=== PATIENT | female | born 1960 | race African-American/Black ===

== ENCOUNTER 2020-09-11 19:36 | Inpatient (IN) | payer BC, SELFPAY ==
--- NOTE | ~2020-09-11 | CT_ITS ---
EXAMINATION: CT abdomen pelvis wo con DATE: 09/15/2020 13:44 INDICATION: Persistent pyelonephritis TECHNIQUE: Computed tomography (CT) of the abdomen and pelvis was performed without intravenous contr ast. Automated exposure control and iterative reconstruction technique were employed. The dose-length product was 703.00 mGy-cm. COMPARISON: 09/11/2020 FINDINGS: Lung bases are clear. Cardiomegaly with small pericardial effusion. Liver, gallbladder, spleen, pancr eas and bilateral adrenal glands are normal. Severe right renal atrophy with compensatory hypertrophy of the left kidney. Motion artifact associated with an unchanged approximately 2 mm calcific lesion at the periphery of the right kidney with no hydronephrosis. Again seen is asymmetric mild left perin ephric stranding. There is also persistent retroperitoneal lymphadenopathy is prominent in the left p erirectal region where the largest lymph node measures 2.2 x 1.1 cm. A few sigmoid diverticula withou t adjacent from 3 change to suggest diverticulitis. Small bowel and appendix are normal. Coarse calci fic lesions consistent with degenerated fibroids in the anteverted uterus. Bladder is normal. Mild th oracolumbar levoscoliosis with mild to moderate spondylosis. Sacral nerve root stimulator extending t hrough the left S3 neural foramen. Moderate bilateral sacral ileitis which could be either degenerati ve or inflammatory in etiology. IMPRESSION: 1. Persistent asymmetric left perinephric stranding without urolithiasis or hydronephrosis consistent with given history of pyelonephritis. 2. Cardiomegaly with small pericardial effusion. 3. Mild left periaortic lymphadenopathy which is likely reactive. 4. 2 mm nonobstructing stone at the periphery of the severely atrophic right kidney. 5. Likely chronic degenerated uterine fibroids. Reviewed, dictated and finalized at location A. IMPRESSION: 1. Persistent asymmetric left perinephric stranding without urolithiasis or hyd ronephrosis consistent with given history of pyelonephritis. 2. Cardiomegaly with small pericardial effusion. 3. Mild left periaortic lymphadenopathy which is likely reactive. 4. 2 mm nonobstructing stone at the periphery of the severely atrophic right ki dney. 5. Likely chronic degenerated uterine fibroids.
--- NOTE | ~2020-09-11 | US_ITS ---
EXAMINATION: US abdomen limited DATE: 09/12/2020 15:59 INDICATION: Right upper quadrant abdominal pain. Nausea and vomiting. TECHNIQUE: Multiple grayscale and Doppler ultrasound images of the abdomen were obtained. COMPARISON: CT abdomen and pelvis 09/11/2020 FINDINGS: The visualized portions of the head and body of the pancreas are normal. The liver is tamia l without focal lesion. No liver surface nodularity. There is normal flow in main portal vein. The ga llbladder is normal in size. No gallstones or gallbladder wall thickening. There was no sonographic M urphy sign. The common duct is normal and measures 4 mm. IMPRESSION: 1. Normal right upper quadrant ultrasound. Reviewed, dictated and finalized at location A.
--- NOTE | ~2020-09-11 | CT_ITS ---
EXAMINATION: CT abdomen pelvis wo con DATE: 09/11/2020 22:33 INDICATION: Vomiting TECHNIQUE: Computed tomography (CT) of the abdomen and pelvis was performed without intravenous contr ast. Automated exposure control and iterative reconstruction technique were employed. The dose-length product was 535.51 mGy-cm. COMPARISON: None FINDINGS: Minimal atelectasis in the left lower lung zone. Mild cardiomegaly. No pericardial or pleural effusio n. Suggestion of prior left mastectomy. Intermediate attenuation sludge and/or gallstones in the depe ndent aspect of the gallbladder. No evident gallbladder wall thickening or pericholecystic inflammato ry stranding to suggest acute cholecystitis. Liver, spleen, pancreas and bilateral adrenal glands are normal. 2 mm calcification potentially renal stone at the periphery of the severely atrophic right k idney. No evident left-sided urolithiasis or hydronephrosis. There is asymmetric mild left perinephri c stranding. Mild left para-aortic lymphadenopathy, the largest at the level of the left renal vein m easuring 12 mm maximal short axis diameter. Bladder is normal. Coarse calcifications in the anteverte d uterus consistent with degenerated uterine fibroids. There are few scattered colonic diverticula wi thout adjacent from 3 change to suggest diverticulitis. Small bowel and appendix are normal. No free intraperitoneal gas or fluid. Sacral nerve root stimulator lead extending through the left S3 neural foramen. Mild thoracolumbar spondylosis with moderate spondylosis. Nonspecific moderate bilateral sac roiliitis which could be either degenerative or inflammatory in etiology. IMPRESSION: 1. Asymmetric left perinephric stranding without evident left-sided urolithiasis or hydronephrosis wh ich raises suspicion for pyelonephritis. Correlate with urinalysis. 2. Sludge and/or gallstones within the otherwise normal gallbladder. No other findings to suggest acu te cholecystitis. 3. Mild cardiomegaly. 4. Mild left para-aortic lymphadenopathy which could be reactive related to suspected left pyelonephr itis. 5. 2 mm nonobstructing stone at the periphery of the severely atrophic right kidney. 6. Likely chronic degeneration uterine fibroids. Reviewed, dictated and finalized at location A. IMPRESSION: 1. Asymmetric left perinephric stranding without evident left-sided urolithiasi s or hydronephrosis which raises suspicion for pyelonephritis. Correlate with u rinalysis. 2. Sludge and/or gallstones within the otherwise normal gallbladder. No other f indings to suggest acute cholecystitis. 3. Mild cardiomegaly. 4. Mild left para-aortic lymphadenopathy which could be reactive related to du pected left pyelonephritis. 5. 2 mm nonobstructing stone at the periphery of the severely atrophic right ki dney. 6. Likely chronic degeneration uterine fibroids.
[2020-09-11 19:51] VITALS: BP 146/88; PULSE 105; RESP 16; TEMP 36.7; O2SAT 100
[2020-09-11 20:13] LABS: Basophils Percent Auto 0.5 % (0.2-1.2); Eosinophils Absolute Auto 0.1 K/mm3 (0-0.3); Eosinophils Percent Auto 1.2 % (0-4.4); Hematocrit 33.6 % (37.0-47.0); Hemoglobin 10.1 g/dL (12.0-15.0); Immature Granulocyte Absolute 0.02 K/mm3 (0.00-0.031); Immature Granulocyte Percent A 0.3 % (0-0.5); Lymphocytes Absolute Auto 1.67 K/mm3 (0.9-3.2); Lymphocytes Percent Auto 22.3 % (18.3-44.2); Mean Corpuscular HGB Conc 30.1 g/dl (32-36); Mean Corpuscular Hemoglobin 24.2 pg (26-34); Mean Corpuscular Volume 80.4 fl (80-100); Monocytes Absolute Auto 0.6 K/mm3 (0.1-0.6); Monocytes Percent Auto 8.4 % (2.6-8.5); Neutrophils Percent Auto 67.3 % (45.5-73.1); Platelet Count Result 357 k/mm3 (150-375); Red Blood Count 4.18 M/mm3 (4.2-5.4); Red Cell Distribution Width 17.1 % (11.5-14.5); White Blood Count 7.5 K/mm3 (4.5-10.0)
[2020-09-11 20:23] LABS: Alanine Aminotransferase 15 U/L (4-35); Albumin Level 4.5 g/dL (3.5-5.1); Alkaline Phosphatase 140 U/L (38-126); Anion Gap 14 mmol/L (8-16); Aspartate Amino Transferase 33 U/L (14-36); Bilirubin,Total 0.6 mg/dL (0.2-1.3); Blood Urea Nitrogen 41 mg/dL (7-17); Calcium 10.1 mg/dL (8.4-10.2); Carbon Dioxide 19 mmol/L (22-30); Chloride 112 mmol/L (98-107); Estimated CRCL calculation 23 ml/min; Estimated Glomerular Filt Rate 25; Glucose 143 mg/dL (65-105); Lipase 310 U/L (23-300); Potassium 4.2 mmol/L (3.4-5.0); Sodium 145 mmol/L (137-145)
--- NOTE | 2020-09-11 22:34 | ED.GENADULT ---
HPI - General Adult General Chief complaint: Abdominal Pain Stated complaint: possible gi bleed per pcp Time Seen by Provider: 09/11/20 21:54 Source: patient and RN notes reviewed Mode of arrival: ambulatory Limitations: no limitations History of Present Illness HPI narrative: This is a 60 year old female who presents for evaluation of nausea and vomiting starting today. Patient states she has been having multiple episodes of emesis today. She reports she has had multiple episodes of brown emesis. She denies abdominal pain, fever or chills. She has noticed strong smelling urine for 1 week. She was told to go to ER by PCP for possible upper GI bleeding. She denies melena. She denies taking anticoagulation and she denies history GI bleeding. She reports most of her doctors are located in [place] Related Data Home Medications Medication Instructions Recorded Confirmed amlodipine 5 mg PO DAILY 09/12/20 09/12/20 anastrozole 1 mg PO DAILY 09/12/20 09/12/20 atorvastatin 20 mg PO DAILY 09/12/20 09/12/20 hydrochlorothiazide 12.5 mg PO DAILY 09/12/20 09/12/20 hydrocodone-acetaminophen 1 tablet PO PRN PRN 09/12/20 09/12/20 insulin glargine [Lantus Solostar 43 unit SUBCUT HS 09/12/20 09/12/20 U-100 Insulin] insulin lispro [Humalog KwikPen 10 unit SUBCUT TID 09/12/20 09/12/20 Insulin] losartan 100 mg PO DAILY 09/12/20 09/12/20 pen needle, diabetic [BD 09/12/20 09/12/20 Ultra-Fine Short Pen Needle] pregabalin 100 mg PO TID 09/12/20 09/12/20 sertraline 100 mg PO DAILY 09/12/20 09/12/20 Allergies Allergy/AdvReac Type Severity Reaction Status Date / Time No Known Allergies Allergy Unverified 09/14/18 10:14 Review of Systems Review of Systems: All systems reviewed & are unremarkable except as noted in HPI and below Constitutional: Constitutional: Denies chills and Denies fever(s) Cardiovascular: Cardiovascular: Denies chest pain Respiratory: Respiratory: Denies cough and Denies dyspnea Gastrointestinal: Gastrointestinal: Reports nausea and Reports vomiting [facility] Past Medical History Medical History (Updated 09/12/20 @ 07:45 by Rosalind Salmeron MD) Bowel incontinence Breast cancer Chronic kidney disease Diabetes mellitus Dysarthria Surgical History Surgical History (Updated 09/11/20 @ 22:34 by Rosalind Salmeron MD) H/O mastectomy Family History Family History (Updated 09/12/20 @ 03:12 by Vielka Lee RN) Sibling Myocardial infarction Breast cancer Mother Myocardial infarction Breast cancer Sibling Myocardial infarction Breast cancer Schizophrenia Father Stomach cancer Social History Social History (Updated 09/11/20 @ 22:35 by Rosalind Salmeron MD) Smoking status: Never smoker Alcohol intake: never Substance use: never Spiritual care concerns: No Exam Const: General: no acute distress and alert Orientation/consciousness: patient oriented x3 Resp: Effort & Inspection: normal respiratory effort and no retractions Auscultation: clear to auscultation bilaterally Cardio: Rate: regular rate Rhythm: regular rhythm Heart sounds: no murmurs GI: GI Palp: Yes Soft to palpation, Yes Tenderness to palpation present (GI) (epigastric pain) and No Guarding due to palpation present (GI) Auscultation: normal bowel sounds Other: guaic negative : General: Yes no CVA tenderness Skin: General skin exam: normal color Rashes: no rashes Neuro: General: patient oriented x3, moves all extremities and CN's II-XI intact bilaterally Course Reevaluation(s) Reevaluation #1: PAtient states she still does not feel well. No vomiting. She is hypertensive but she states she has not taken her antihypertensive today. She takes losartan 100mg and amlodipine 5 mg Date: 09/12/20 Time: 01:13 Vital Signs Vital signs: Vital Signs Temperature 98.0 F 09/11/20 19:51 Pulse Rate 105 H 09/11/20 19:51 Respiratory Rate 16 09/11/20
[2020-09-11 23:08] LABS: Add Urine Microscopic? YES; Appearance Urine Cloudy (Clear); Bacteria Urine 3+ /hpf; Bilirubin Urine Negative (Negative); Blood Urine 1+ (Negative); Color Urine Yellow (Yellow); Glucose Urine UA Negative (Negative); Ketones Urine Negative (Negative); Leukocyte Esterase Ur 3+ LEU/UL (Negative); Mucus Urine Rare /lpf; Nitrate Urine Negative (Negative); Protein Urine 3+ mg/dL (Negative); Specific Grav Ur 1.015 (1.001-1.035); Squamous Epithelial Cell Urine Occasional /hpf (Few); Urobilinogen Urine Negative mg/dL (<2.0); WBC Clumps Urine Present /HPF; WBC Urine >75 /hpf
[2020-09-11] MEDS: ONDANSETRON INJ 4 MG/2 ML VIAL IV PUSH (23:19)
[2020-09-11] MEDS: PANTOPRAZOLE SODIUM IV 40 MG VIAL IV PUSH (23:19)
[2020-09-11] MEDS: LACTATED RINGERS 1,000 ML 999 ML IV CONT (23:20)
[2020-09-12 01:07] VITALS: BP 197/128; PULSE 99; RESP 16; TEMP 36.7; O2SAT 100
[2020-09-12] MEDS: amLODIPine BESYLATE 5 MG TABLET PO ×2 (01:21→08:13)
[2020-09-12] MEDS: LOSARTAN POTASSIUM 100 MG TABLET PO (01:27)
[2020-09-12 02:24] VITALS: BP 182/90; PULSE 97; RESP 16; O2SAT 98
[2020-09-12 02:35] VITALS: BP 189/82; PULSE 97; RESP 16; TEMP 36.3; O2SAT 98
--- NOTE | 2020-09-12 02:49 | PC.NURSE ---
This patient, Leny Antonio, was admitted to 3 [facility] Surg Room 300-01 @02:40. Report was taken from Tutu JONES in ED. Patient/family oriented to hospital policies and general routines including ID bracelet, bed and alarms, visiting hours, pain management, procedures, bathroom and other care routines, personal items, smoking policy, room service/diet, and visiting hours. Information on how to activate the Rapid Response Team has been discussed. Patient/Family are encouraged to report perceived risks to care and to ask questions if they do not understand what they are told or what they should do.
[2020-09-12 02:56] VITALS: BMI 32.8
[2020-09-12] MEDS: ONDANSETRON INJ 4 MG/2 ML VIAL IV PUSH ×2 (03:00→08:17)
[2020-09-12 04:30] LABS: Hematocrit 35.8 % (37.0-47.0); Hemoglobin 10.6 g/dL (12.0-15.0)
--- NOTE | 2020-09-12 05:04 | PM.IMHP ---
H&P: HPI History of Present Illness Date/Time: 09/12/20 05:04 Chief Complaint: Nausea and vomiting Narrative: This is a 60-year-old female with past medical history significant for hypertension, dyslipidemia, type 2 diabetes mellitus, chronic kidney disease. Patient usually goes to [facility] this is a first-time visit in the a facility. She comes here due to nausea vomiting chills for 2 days generalized weakness fatigue and malaise she has not been able to keep anything down for the last 2 days or so. She denies any pain or burning with urination, she pain on the left flank. Today she came to the emergency after she did not feel well she came by ambulance. Preliminary workup was significant for CT of abdomen and pelvis with left-sided pyelonephritis and creatinine of 2.4. Review of Systems Review of Systems: Narrative: Nausea vomiting and left flank pain Constitutional: Constitutional: Denies chills and Denies fever(s) Eyes: Eyes: Denies change in vision ENT: Denies neck pain, Denies nose pain and Denies odynophagia Cardiovascular: Cardiovascular: Denies irregular heart rhythm, Reports leg edema, Denies lightheadedness, Denies radiating jaw, neck or arm pain, Denies palpitations, Denies dyspnea, Denies dyspnea on exertion and Denies orthopnea Respiratory: Respiratory: Denies cough, Denies dyspnea and Denies wheezing Gastrointestinal: Gastrointestinal: Reports nausea and Reports vomiting Genitourinary: Genitourinary: Reports flank pain (Left) Musculoskeletal: Musculoskeletal: Denies myalgias, Denies arthralgias and Denies joint swelling Integumentary/Breasts: Skin/Breast: Denies rash Neurologic: Denies focal weakness and Denies Sensory deficit (Neuro) Psychiatric: Psychiatric: Reports no additional psychiatric complaints Endocrine: Endocrine: Reports no additional endocrine complaints Hematologic/Lymphatic: Hematologic/Lymphatic: Reports no additional hematologic/lymphatic complaints Allergic/Immunologic: Allergic/Immunologic: Reports no additional allergic/immunologic complaints [facility] Past Medical History Medical History (Updated 09/12/20 @ 05:14 by Irwin Heller MD) Bowel incontinence Breast cancer Chronic kidney disease Diabetes mellitus Dysarthria Surgical History Surgical History (Updated 09/11/20 @ 22:34 by Rosalind Salmeron MD) H/O mastectomy Family History Family History (Updated 09/12/20 @ 03:12 by Vielka Lee RN) Sibling Myocardial infarction Breast cancer Mother Myocardial infarction Breast cancer Sibling Myocardial infarction Breast cancer Schizophrenia Father Stomach cancer Social History Social History (Updated 09/11/20 @ 22:35 by Rosalind Salmeron MD) Smoking status: Never smoker Alcohol intake: never Substance use: never Spiritual care concerns: No Meds Home Medications and Allergies Home Medications Medication Instructions Recorded Confirmed Type amlodipine 5 mg PO DAILY 09/12/20 09/12/20 History anastrozole 1 mg PO DAILY 09/12/20 09/12/20 History atorvastatin 20 mg PO DAILY 09/12/20 09/12/20 History hydrochlorothiazide 12.5 mg PO DAILY 09/12/20 09/12/20 History hydrocodone-acetaminophen 1 tablet PO PRN PRN 09/12/20 09/12/20 History insulin glargine [Lantus Solostar 43 unit SUBCUT HS 09/12/20 09/12/20 History U-100 Insulin] insulin lispro [Humalog KwikPen 10 unit SUBCUT TID 09/12/20 09/12/20 History Insulin] losartan 100 mg PO DAILY 09/12/20 09/12/20 History pen needle, diabetic [BD 09/12/20 09/12/20 History Ultra-Fine Short Pen Needle] pregabalin 100 mg PO TID 09/12/20 09/12/20 History sertraline 100 mg PO DAILY 09/12/20 09/12/20 History Allergies Allergy/AdvReac Type Severity Reaction Status Date / Time No Known Allergies Allergy Unverified 09/14/18 10:14 Vital Signs Vital Signs - 24 hr 09/11/20 19:51 09/12/20 01:07 09/12/20 02:24 Temperature 98.0 F 98.0 F
[2020-09-12] MEDS: SODIUM CHLORIDE 0.9% IV 1,000 ML 85 ML IV CONT (05:16)
[2020-09-12 06:00] VITALS: BP 149/89; PULSE 89; RESP 18; TEMP 36.4; O2SAT 100
--- NOTE | 2020-09-12 08:10 | PC.NURSE ---
Patient has sharp pains in abdomen that come and go. Nauseated at times.
[2020-09-12 08:11] LABS: Hematocrit 34.5 % (37.0-47.0); Hemoglobin 10.3 g/dL (12.0-15.0)
[2020-09-12] MEDS: SERTRALINE HCL 50 MG TABLET 100 MG PO (08:13)
[2020-09-12] MEDS: PANTOPRAZOLE SODIUM IV 40 MG VIAL IV PUSH ×2 (08:13→19:51)
[2020-09-12] MEDS: ANASTROZOLE (*CHEMO) 1 MG TABLET PO (08:13)
[2020-09-12] MEDS: PREGABALIN (*CRX) 50 MG CAPSULE 100 MG PO ×3 (08:17→17:13)
[2020-09-12 08:57] LABS: Glucose Point of Care 136 mg/dl (65-105)
[2020-09-12 11:01] LABS: Anion Gap 8 mmol/L (8-16); Blood Urea Nitrogen 33 mg/dL (7-17); Carbon Dioxide 17 mmol/L (22-30); Chloride 118 mmol/L (98-107); Estimated CRCL calculation 30 ml/min; Estimated Glomerular Filt Rate 35; Glucose 127 mg/dL (65-105); Potassium 4.6 mmol/L (3.4-5.0); Sodium 143 mmol/L (137-145)
[2020-09-12 13:01] LABS: Hematocrit 32.9 % (37.0-47.0); Hemoglobin 9.8 g/dL (12.0-15.0)
[2020-09-12 13:22] LABS: Glucose Point of Care 102 mg/dl (65-105)
[2020-09-12] MEDS: LACTATED RINGERS 1,000 ML 85 ML IV CONT (13:38)
[2020-09-12 14:00] VITALS: BP 131/78; PULSE 82; RESP 18; TEMP 36.6; O2SAT 99
--- NOTE | 2020-09-12 14:13 | PM.IMPN ---
Progress Note: A&P Assessment and Plan (1) Pyelonephritis of left kidney: Code(s): N12 - Tubulo-interstitial nephritis, not specified as acute or chronic Status: Acute Assessment and Plan: Likely due to UTI -continue ceftriaxone this time -await cultures and adjust medications as necessary -continue IV fluids, bicarb added today due to renal failure and low CO2 (2) Nausea and vomiting: Code(s): R11.2 - Nausea with vomiting, unspecified Status: Acute Assessment and Plan: Likely due to UTI with pyelonephritis and JACKSON -differential includes gallbladder disease since the patient has pain in the right upper quadrant -her liver enzymes admission with a slightly elevated alk-phos 140 -CT of the abdomen showed gallstones but no signs of acute pancreatitis -will order right upper quadrant ultrasound to ensure no pathology. May consider HIDA scan if she does not improve with the current treatment -will start clear liquid diet (3) Diabetes mellitus: Code(s): E11.9 - Type 2 diabetes mellitus without complications Status: Acute Assessment and Plan: Last glucose 102 -because the patient is barely eating and continues to have nausea, Lantus will be decreased by 50%. If she is NPO or not tolerating a diet, this is going to be held -will stop mealtime insulin and start sliding scale insulin -this will likely need to be adjusted as she improves -continue Accu-Cheks (4) Hypertension: Code(s): I10 - Essential (primary) hypertension Status: Acute Assessment and Plan: Last blood pressure 149/89 but was much higher earlier in the stay -continue amlodipine -will add p.r.n. hydralazine for systolic greater than 170 (5) Chronic acquired lymphedema: Code(s): I89.0 - Lymphedema, not elsewhere classified Status: Acute Assessment and Plan: Chronic, continue Compression stocking (6) JACKSON (acute kidney injury): Code(s): N17.9 - Acute kidney failure, unspecified Status: Acute Assessment and Plan: Creatinine admission was 2.4 and is already down to 1.8 with fluids and antibiotics -likely due to left pyelonephritis as well as an atrophic right kidney which does not provide much reserve -monitor closely, start bicarb. Potassium within normal limits, chloride high likely due to normal saline. Will start on LR (7) Atrophic kidney: Code(s): N26.1 - Atrophy of kidney (terminal) Status: Acute Assessment and Plan: Finding on CT (8) Cardiomegaly: Code(s): I51.7 - Cardiomegaly Status: Acute Assessment and Plan: Patient does not look fluid overloaded nor does she have any evidence of vascular congestion -will need to follow up with an echo if she has not had 1 in the recent past (9) Uterine fibroid: Code(s): D25.9 - Leiomyoma of uterus, unspecified Status: Acute Assessment and Plan: f/u with [employer] POT TENDER outpt Time Spent With Patient Time with patient: 25 - 35 minutes Subjective Date/time seen: 09/12/20 14:13 Interval history: Pt is a 60-year-old female here for pyelonephritis. Patient states that she continues to have nausea and vomiting. She last vomited this morning. She denies abdominal pain but when palpating her right upper quadrant she has significant pain to that area. She states that she has not really had a bowel movement but has had a small yellow diarrhea type bowel movement this morning. She denies chest pain, new shortness of breath, fevers, chills, or headaches. She says her speech is slurred at baseline. She has a little bit of weakness due to this illness but is able to walk to the bathroom and back without issue. She does not feel like she needs physical therapy at this point. Review of Systems Review of Systems: All systems reviewed & are unremarkable except as noted in HPI and below Exam Narrative: Exam Narrative
[2020-09-12] MEDS: SODIUM BICARBONATE TAB 650 MG TABLET PO (17:13)
[2020-09-12 17:58] LABS: Glucose Point of Care 133 mg/dl (65-105)
[2020-09-12] MEDS: INSULIN GLARGINE (*BKC) 100 UNITS/ML 20 UNITS SUB-Q (19:51)
[2020-09-12 20:27] LABS: Hemoglobin 8.9 g/dL (12.0-15.0)
[2020-09-12 22:00] VITALS: BP 95/55; PULSE 83; RESP 18; TEMP 36.4; O2SAT 98
[2020-09-12 23:11] LABS: Glucose Point of Care 165 mg/dl (65-105)
[2020-09-13] MEDS: LACTATED RINGERS 1,000 ML 85 ML IV CONT (01:58)
[2020-09-13 06:00] VITALS: BP 164/89; PULSE 84; RESP 16; TEMP 36.1; O2SAT 100
[2020-09-13 06:46] LABS: Hematocrit 27.7 % (37.0-47.0); Hemoglobin 8.4 g/dL (12.0-15.0); Mean Corpuscular HGB Conc 30.3 g/dl (32-36); Mean Corpuscular Hemoglobin 24.2 pg (26-34); Mean Corpuscular Volume 79.8 fl (80-100); Mean Platelet Volume 10.3 fl (7.4-10.4); Platelet Count Result 313 k/mm3 (150-375); Red Blood Count 3.47 M/mm3 (4.2-5.4); Red Cell Distribution Width 16.8 % (11.5-14.5); White Blood Count 6.4 K/mm3 (4.5-10.0)
[2020-09-13 07:00] LABS: Alanine Aminotransferase 11 U/L (4-35); Albumin Level 3.2 g/dL (3.5-5.1); Alkaline Phosphatase 93 U/L (38-126); Anion Gap 8 mmol/L (8-16); Aspartate Amino Transferase 21 U/L (14-36); Bilirubin,Total 0.3 mg/dL (0.2-1.3); Blood Urea Nitrogen 33 mg/dL (7-17); Calcium 8.8 mg/dL (8.4-10.2); Carbon Dioxide 21 mmol/L (22-30); Chloride 115 mmol/L (98-107); Estimated CRCL calculation 25 ml/min; Estimated Glomerular Filt Rate 28; Glucose 67 mg/dL (65-105); Lipase 298 U/L (23-300); Potassium 4.1 mmol/L (3.4-5.0); Sodium 144 mmol/L (137-145)
[2020-09-13] MEDS: GLUCOSE ORAL GEL 15 GM OF GLUCSE IN 37.5 GM TUBE PO (07:50)
[2020-09-13 07:57] LABS: Glucose Point of Care 61 mg/dl (65-105)
[2020-09-13 08:10] LABS: Glucose Point of Care 118 mg/dl (65-105)
[2020-09-13] MEDS: amLODIPine BESYLATE 5 MG TABLET PO (08:33)
[2020-09-13] MEDS: SERTRALINE HCL 50 MG TABLET 100 MG PO (08:33)
[2020-09-13] MEDS: SODIUM BICARBONATE TAB 650 MG TABLET PO ×2 (08:33→17:26)
[2020-09-13] MEDS: ANASTROZOLE (*CHEMO) 1 MG TABLET PO (08:33)
[2020-09-13] MEDS: PANTOPRAZOLE SODIUM IV 40 MG VIAL IV PUSH ×2 (08:34→21:45)
[2020-09-13] MEDS: PREGABALIN (*CRX) 50 MG CAPSULE 100 MG PO ×3 (08:40→17:26)
[2020-09-13 09:55] VITALS: O2SAT 98
[2020-09-13 10:56] LABS: Glucose Point of Care 127 mg/dl (65-105)
--- NOTE | 2020-09-13 11:02 | PM.IMPN ---
Progress Note: A&P Assessment and Plan (1) Pyelonephritis of left kidney: Code(s): N12 - Tubulo-interstitial nephritis, not specified as acute or chronic Status: Acute Assessment and Plan: Likely due to UTI -continue ceftriaxone this time -await cultures and adjust medications as necessary -continue IV fluids but increase rate. -If her Cr worsens tomorrow, may consider rescaning -Request records from PCP since pt states she has a boot lace cutter machine but can't remember his name and thought it was but he cannot be found. (2) Nausea and vomiting: Code(s): R11.2 - Nausea with vomiting, unspecified Status: Acute Assessment and Plan: Resolved. Likely due to UTI with pyelonephritis and JACKSON -gallbladder u/s looked okay and pt has had no further pain in her RUQ -liver enzymes have returned to normal -CT of the abdomen showed gallstones but no signs of acute pancreatitis or cholecystitis -advance diet -pt had a BM today. She denies any hx of a GI bleed or blood in her stool (3) Diabetes mellitus: Code(s): E11.9 - Type 2 diabetes mellitus without complications Status: Acute Assessment and Plan: Last glucose 127 but was low this morning at 61 -Since she is advancing her diet, I will continue her decreased lantus dose tonight -Continue SSI -check A1C -this will likely need to be adjusted as she improves -continue Accu-Cheks (4) Hypertension: Code(s): I10 - Essential (primary) hypertension Status: Acute Assessment and Plan: Last blood pressure 164/89 but was much higher earlier in the stay -continue amlodipine -Continue hydralazine for systolic greater than 170 (5) Chronic acquired lymphedema: Code(s): I89.0 - Lymphedema, not elsewhere classified Status: Acute Assessment and Plan: Chronic, continue Compression stocking (6) JACKSON (acute kidney injury): Code(s): N17.9 - Acute kidney failure, unspecified Status: Acute Assessment and Plan: Creatinine admission was 2.4 and went down but now back up to 2.2 -likely due to left pyelonephritis as well as an atrophic right kidney which does not provide much reserve -monitor closely. 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 Pt was seen today and no longer having any nausea or vomiting but is now light headed and dizzy. She states she had a big bowel movement that was light brown after being constipated for a few days. she denies any blood in her stool. She has tolerated her clear liquid and really wants a regular diet as she has no further abdominal pain. She denies CP, SOB or weakness. She says she has a boot lace cutter machine but says it is Dr. Lou from [place] and I don't believe there is a Dr. Lou in [place]. I am requesting records from her PCP. Exam Narrative: Exam Narrative: General: Well developed well nourished patient in NAD HEENT: normocephalic Neck: supple Neuro: Alert and oriented x4. Mildly Slurred speech CV:RRR Resp:CTA Abd: Soft, non distended. No pain to palpation to the abdomen. Positive bowel sounds Extremities: Some mild swelling to lower extremities with no pitting edema, pain to palpation, or erythema. Objective Data Vital Signs Tresa
[2020-09-13 12:13] LABS: Glucose Point of Care 103 mg/dl (65-105)
[2020-09-13 16:00] VITALS: BP 145/72; PULSE 84; RESP 16; TEMP 36.5; O2SAT 98
[2020-09-13 17:24] LABS: Glucose Point of Care 121 mg/dl (65-105)
[2020-09-13] MEDS: LACTATED RINGERS 1,000 ML 100 ML IV CONT (21:52)
[2020-09-13 22:00] VITALS: BP 150/97; PULSE 77; RESP 18; TEMP 36.3; O2SAT 99
[2020-09-13 22:15] LABS: Glucose Point of Care 121 mg/dl (65-105)
[2020-09-14 01:38] LABS: Hemoglobin A1C 6.8 % (<5.7)
[2020-09-14 06:00] VITALS: BP 177/94; PULSE 81; RESP 16; TEMP 36.3; O2SAT 100
[2020-09-14 07:00] VITALS: BP 152/90
[2020-09-14 08:04] LABS: Glucose Point of Care 122 mg/dl (65-105)
[2020-09-14] MEDS: SODIUM BICARBONATE TAB 650 MG TABLET PO ×2 (08:55→16:39)
[2020-09-14] MEDS: amLODIPine BESYLATE 5 MG TABLET PO (08:55)
[2020-09-14] MEDS: PREGABALIN (*CRX) 50 MG CAPSULE 100 MG PO ×3 (08:55→16:38)
[2020-09-14] MEDS: SERTRALINE HCL 50 MG TABLET 100 MG PO (08:55)
[2020-09-14] MEDS: ANASTROZOLE (*CHEMO) 1 MG TABLET PO (08:56)
[2020-09-14] MEDS: PANTOPRAZOLE SODIUM IV 40 MG VIAL IV PUSH ×2 (08:56→20:44)
[2020-09-14 12:00] LABS: Glucose Point of Care 178 mg/dl (65-105)
[2020-09-14 12:30] LABS: Hematocrit 34.2 % (37.0-47.0); Hemoglobin 9.9 g/dL (12.0-15.0); Mean Corpuscular HGB Conc 28.9 g/dl (32-36); Mean Corpuscular Hemoglobin 24.4 pg (26-34); Mean Corpuscular Volume 84.4 fl (80-100); Platelet Count Result 272 k/mm3 (150-375); Red Blood Count 4.05 M/mm3 (4.2-5.4); Red Cell Distribution Width 17.2 % (11.5-14.5); White Blood Count 5.7 K/mm3 (4.5-10.0)
[2020-09-14 12:36] LABS: Anion Gap 15 mmol/L (8-16); Blood Urea Nitrogen 35 mg/dL (7-17); Carbon Dioxide 16 mmol/L (22-30); Chloride 114 mmol/L (98-107); Estimated CRCL calculation 28 ml/min; Estimated Glomerular Filt Rate 33; Glucose 180 mg/dL (65-105); Phosphorus 4.3 mg/dL (2.5-4.5); Potassium 4.7 mmol/L (3.4-5.0); Sodium 145 mmol/L (137-145)
--- NOTE | 2020-09-14 12:45 | PM.IMPN ---
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 (2) Nausea and vomiting: Code(s): R11.2 - Nausea with vomiting, unspecified Status: Acute Assessment and Plan: Resolved. Likely due to UTI with pyelonephritis and JACKSON -gallbladder u/s looked okay and pt has had no further pain in her RUQ -liver enzymes have returned to normal -CT of the abdomen showed gallstones but no signs of acute pancreatitis or cholecystitis -pt tolerating a regular diet -pt had a BM today. She denies any hx of a GI bleed or blood in her stool (3) Diabetes mellitus: Code(s): E11.9 - Type 2 diabetes mellitus without complications Status: Acute Assessment and Plan: Last glucose 180 -Since she is advancing her diet, I will continue her decreased lantus dose tonight -Continue SSI -A1C 6.8 -continue Accu-Cheks (4) Hypertension: Code(s): I10 - Essential (primary) hypertension Status: Acute Assessment and Plan: Last blood pressure 152/90 but was much higher earlier in the stay -continue amlodipine -Continue hydralazine for systolic greater than 170 (5) Chronic acquired lymphedema: Code(s): I89.0 - Lymphedema, not elsewhere classified Status: Acute Assessment and Plan: Chronic, continue Compression stocking (6) JACKSON (acute kidney injury): Code(s): N17.9 - Acute kidney failure, unspecified Status: Acute Assessment and Plan: Creatinine admission was 2.4 and is now 1.9 -likely due to left pyelonephritis as well as an atrophic right kidney which does not provide much reserve -monitor closely. Potassium within normal limits -Ucx + for UTI -await records (7) Atrophic kidney: Code(s): N26.1 - Atrophy of kidney (terminal) Status: Acute Assessment and Plan: Finding on CT -monitor renal fx (8) Cardiomegaly: Code(s): I51.7 - Cardiomegaly Status: Acute Assessment and Plan: Patient does not look fluid overloaded nor does she have any evidence of vascular congestion -will need to follow up with an echo if she has not had 1 in the recent past (9) Uterine fibroid: Code(s): D25.9 - Leiomyoma of uterus, unspecified Status: Acute Assessment and Plan: f/u with SOFTWARE QUALITY AUTOMATION ENGINEER outpt Subjective Date/time seen: 09/14/20 12:45 Interval history: Pt is a 60-year-old female here for pyelonephritis. Pt was seen today and no longer having any nausea or vomiting but is now having diarrhea. She states when this happens she takes Imodium at home given by her pcp. She denies any blood in her stool. She is tollerating a diet and has not had any nausea, vomiting or abdominal pain. She denies CP, SOB or weakness. She says she has a emissions testing and repair technician but says it is Dr. Lou from [place] and I don't believe there is a Dr. Lou in [place]. I am requesting records from her PCP but we still don't have them back yet. Exam Narrative: Exam Narrative: General: Well developed well nourished patient in NAD HEENT: normocephalic Neck: supple Neuro: Alert and oriented x4. Mildly Slurred speech CV:RRR Resp:CTA Abd: Soft, non distended. No pain to palpation to the abdomen. Positive bowel sounds Extremities: Some mild swelling to lower extremities with no pitting edema, pain to palpation, or erythema. Objective Data Vital Signs Vital Signs: Vital Signs - 24 hr 09/13/20 16:00 09/13/20 22:00 09/14/20 06:00 Temperature 97.7 F 97.3 F L 97.3 F L Pulse Rate 84 77 81 Respiratory Rate 16 18 16
[2020-09-14] MEDS: LACTATED RINGERS 1,000 ML 100 ML IV CONT ×2 (12:50→23:59)
[2020-09-14 14:00] VITALS: BP 150/73; PULSE 87; RESP 16; TEMP 37.1; O2SAT 99
[2020-09-14 17:47] LABS: Glucose Point of Care 114 mg/dl (65-105)
[2020-09-14 18:17] LABS: IFOB Positive Control Positive; Immunochemical Fecal Occult Bl Negative (N)
[2020-09-14] MEDS: LOPERAMIDE HCL 2 MG CAPSULE PO (20:42)
[2020-09-14] MEDS: INSULIN GLARGINE (*BKC) 100 UNITS/ML 20 UNITS SUB-Q (20:56)
[2020-09-14 22:00] VITALS: BP 123/64; PULSE 81; RESP 16; TEMP 36.6; O2SAT 100
[2020-09-14 22:14] LABS: Glucose Point of Care 221 mg/dl (65-105)
[2020-09-15 06:00] VITALS: BP 135/81; PULSE 79; RESP 16; TEMP 36.2; O2SAT 100
[2020-09-15 06:29] LABS: Basophils Percent Auto 0.3 % (0.2-1.2); Eosinophils Absolute Auto 0.4 K/mm3 (0-0.3); Eosinophils Percent Auto 5.5 % (0-4.4); Hemoglobin 7.7 g/dL (12.0-15.0); Immature Granulocyte Absolute 0.02 K/mm3 (0.00-0.031); Immature Granulocyte Percent A 0.3 % (0-0.5); Lymphocytes Absolute Auto 2.03 K/mm3 (0.9-3.2); Mean Corpuscular HGB Conc 30.8 g/dl (32-36); Mean Corpuscular Hemoglobin 24.2 pg (26-34); Mean Corpuscular Volume 78.6 fl (80-100); Mean Platelet Volume 10.6 fl (7.4-10.4); Monocytes Absolute Auto 0.6 K/mm3 (0.1-0.6); Neutrophils Absolute Auto 3.4 K/mm3 (1.3-6.7); Neutrophils Percent Auto 52.9 % (45.5-73.1); Platelet Count Result 314 k/mm3 (150-375); Red Blood Count 3.18 M/mm3 (4.2-5.4); Red Cell Distribution Width 16.5 % (11.5-14.5); White Blood Count 6.4 K/mm3 (4.5-10.0)
[2020-09-15 06:45] LABS: Anion Gap 8 mmol/L (8-16); Blood Urea Nitrogen 35 mg/dL (7-17); Calcium 8.3 mg/dL (8.4-10.2); Carbon Dioxide 19 mmol/L (22-30); Chloride 118 mmol/L (98-107); Estimated CRCL calculation 30 ml/min; Estimated Glomerular Filt Rate 35; Glucose 112 mg/dL (65-105); Potassium 4.1 mmol/L (3.4-5.0); Sodium 145 mmol/L (137-145)
[2020-09-15 08:14] LABS: Glucose Point of Care 89 mg/dl (65-105)
[2020-09-15] MEDS: PANTOPRAZOLE SODIUM IV 40 MG VIAL IV PUSH ×2 (08:23→20:31)
[2020-09-15] MEDS: SERTRALINE HCL 50 MG TABLET 100 MG PO (08:24)
[2020-09-15] MEDS: amLODIPine BESYLATE 5 MG TABLET 10 MG PO (08:24)
[2020-09-15] MEDS: PREGABALIN (*CRX) 50 MG CAPSULE 100 MG PO ×3 (08:24→17:29)
[2020-09-15] MEDS: SODIUM BICARBONATE TAB 650 MG TABLET PO ×2 (08:24→17:29)
[2020-09-15] MEDS: ANASTROZOLE (*CHEMO) 1 MG TABLET PO (08:25)
[2020-09-15] MEDS: LACTATED RINGERS 1,000 ML 100 ML IV CONT (10:52)
[2020-09-15 12:05] LABS: Glucose Point of Care 124 mg/dl (65-105); Hematocrit 30.1 % (37.0-47.0); Hemoglobin 8.8 g/dL (12.0-15.0)
[2020-09-15 12:22] LABS: Transferrin 151 mg/dL (206-381)
[2020-09-15 12:58] LABS: Iron 45 ug/dL (37-170); Percent Iron Saturation 22 % (20-50)
--- NOTE | 2020-09-15 13:12 | PM.IMPN ---
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 Now she is saying they are at [facility]. Will request records -Will re-CT pt as she is still having pain with persistent kidney dysfunction. Since she only has one working kidney, I want to make sure the pyelo is not wosening (2) Nausea and vomiting: Code(s): R11.2 - Nausea with vomiting, unspecified Status: Acute Assessment and Plan: Resolved. Likely due to UTI with pyelonephritis and JACKSON -gallbladder u/s looked okay and pt has had no further pain in her RUQ -liver enzymes have returned to normal -CT of the abdomen showed gallstones but no signs of acute pancreatitis or cholecystitis -pt tolerating a regular diet -pt had a BM today. She denies any hx of a GI bleed or blood in her stool (3) Diabetes mellitus: Code(s): E11.9 - Type 2 diabetes mellitus without complications Status: Acute Assessment and Plan: Last glucose 124 -Continue SSI and lantus -A1C 6.8 -continue Accu-Cheks (4) Hypertension: Code(s): I10 - Essential (primary) hypertension Status: Acute Assessment and Plan: Last blood pressure 135/81 but was much higher earlier in the stay -continue amlodipine -Continue hydralazine for systolic greater than 170 (5) Chronic acquired lymphedema: Code(s): I89.0 - Lymphedema, not elsewhere classified Status: Acute Assessment and Plan: Chronic, continue Compression stocking (6) JACKSON (acute kidney injury): Code(s): N17.9 - Acute kidney failure, unspecified Status: Acute Assessment and Plan: Creatinine admission was 2.4 and is now 1.8 -likely due to left pyelonephritis as well as an atrophic right kidney which does not provide much reserve -monitor closely. Potassium within normal limits -Ucx + for UTI -await records -Pt Cr seems stable and this may be her baseline. I am going to stop the fluids and see how she does overnight. Hopefully we get her records tomorrow and if not I'm going to call her pcp. hopefully d/c tomorrow if pain is better and CT does not show worsening (7) Atrophic kidney: Code(s): N26.1 - Atrophy of kidney (terminal) Status: Acute Assessment and Plan: Finding on CT -monitor renal fx (8) Cardiomegaly: Code(s): I51.7 - Cardiomegaly Status: Acute Assessment and Plan: Patient does not look fluid overloaded nor does she have any evidence of vascular congestion -will need to follow up with an echo if she has not had 1 in the recent past (9) Uterine fibroid: Code(s): D25.9 - Leiomyoma of uterus, unspecified Status: Acute Assessment and Plan: f/u with COAL INSPECTOR outpt Subjective Date/time seen: 09/15/20 13:12 Interval history: Pt is a 60-year-old female here for pyelonephritis. Pt was seen today and no longer having any nausea or vomiting and is eating and drinking well. She keeps urinating and is having diarrhea but it is improving. She still feels very sleepy. She is now saying her sole rounding machine operator may be a [facility] but doesn't know the name.She denies any blood in her stool. Exam Narrative: Exam Narrative: General: Well developed well nourished patient in NAD HEENT: normocephalic Neck: supple Neuro: Alert and oriented x4. Mildly Slurred speech CV:RRR Resp:CTA Abd: Soft, non distended. No pain to palpation to the abdomen. Positive bowel sounds Extremities: Some mild swelling to lower extremities with no pitting edema, pain to palpation, or erythema. Objective Data Vital Signs Vital S
[2020-09-15 13:22] LABS: Folic Acid 8.1 ng/mL (2.76->20)
[2020-09-15 15:36] VITALS: BP 152/85; PULSE 90; RESP 18; TEMP 36.5; O2SAT 100
[2020-09-15 17:17] LABS: Glucose Point of Care 158 mg/dl (65-105)
[2020-09-15 20:59] LABS: Glucose Point of Care 138 mg/dl (65-105)
[2020-09-15 22:00] VITALS: BP 132/73; PULSE 74; RESP 18; TEMP 36.3; O2SAT 99
[2020-09-16] MEDS: LOPERAMIDE HCL 2 MG CAPSULE PO (00:13)
[2020-09-16 06:00] VITALS: BP 147/90; PULSE 86; RESP 18; TEMP 36.4; O2SAT 100
[2020-09-16 06:32] LABS: Hematocrit 25.1 % (37.0-47.0); Hemoglobin 7.8 g/dL (12.0-15.0)
[2020-09-16 06:45] LABS: Anion Gap 7 mmol/L (8-16); Blood Urea Nitrogen 31 mg/dL (7-17); Calcium 8.4 mg/dL (8.4-10.2); Carbon Dioxide 22 mmol/L (22-30); Chloride 117 mmol/L (98-107); Estimated CRCL calculation 38 ml/min; Estimated Glomerular Filt Rate 46; Glucose 98 mg/dL (65-105); Magnesium 1.8 mg/dL (1.6-2.3); Potassium 4.4 mmol/L (3.4-5.0); Sodium 146 mmol/L (137-145)
[2020-09-16 07:53] LABS: Glucose Point of Care 116 mg/dl (65-105)
[2020-09-16] MEDS: PANTOPRAZOLE SODIUM IV 40 MG VIAL IV PUSH (08:17)
[2020-09-16] MEDS: SERTRALINE HCL 50 MG TABLET 100 MG PO (08:17)
[2020-09-16] MEDS: SODIUM BICARBONATE TAB 650 MG TABLET PO (08:17)
[2020-09-16] MEDS: amLODIPine BESYLATE 5 MG TABLET 10 MG PO (08:17)
[2020-09-16] MEDS: PREGABALIN (*CRX) 50 MG CAPSULE 100 MG PO ×2 (08:17→13:25)
[2020-09-16] MEDS: ANASTROZOLE (*CHEMO) 1 MG TABLET PO (08:17)
[2020-09-16] MEDS: LACTATED RINGERS 1,000 ML 80 ML IV CONT (08:17)
[2020-09-16 11:33] LABS: Glucose Point of Care 175 mg/dl (65-105)
[2020-09-16 14:00] VITALS: BP 151/85; PULSE 113; RESP 20; TEMP 36.4; O2SAT 100
--- NOTE | 2020-09-16 14:33 | PM.DS ---
DS: Admitting Diagnosis Admitting Diagnosis Admitting Diagnosis: pyelonephritis DS: Discharge Diagnosis Discharge Diagnosis (1) Pyelonephritis of left kidney: Code(s): N12 - Tubulo-interstitial nephritis, not specified as acute or chronic Status: Acute Assessment and Plan: Likely due to UTI -Pt received ceftriaxone while hospitalized and discharged on cefdinir -spoke to her pcp about this and will do a f/u u/s to ensure pyelo has improved since her right kidney is compromised. -Cr better today 1.4 which is her baseline according to her PCP -Pt sees Dr. Mcfadden nephrology and she will f/u with them as well -Pt afebrile (2) Nausea and vomiting: Code(s): R11.2 - Nausea with vomiting, unspecified Status: Acute Assessment and Plan: Resolved. Likely due to UTI with pyelonephritis and JACKSON -gallbladder u/s looked okay and pt has had no further pain in her RUQ -liver enzymes have returned to normal -CT of the abdomen showed gallstones but no signs of acute pancreatitis or cholecystitis -pt tolerating a regular diet -pt had a BM today. She denies any hx of a GI bleed or blood in her stool (3) Diabetes mellitus: Code(s): E11.9 - Type 2 diabetes mellitus without complications Status: Acute Assessment and Plan: Last glucose 175 -Continue home regimen -A1C 6.8 (4) Hypertension: Code(s): I10 - Essential (primary) hypertension Status: Acute Assessment and Plan: Last blood pressure 151/85 but was much higher earlier in the stay -continue amlodipine and lostartan -HCTZ discontinued (5) Chronic acquired lymphedema: Code(s): I89.0 - Lymphedema, not elsewhere classified Status: Acute Assessment and Plan: Chronic, continue Compression stocking (6) JACKSON (acute kidney injury): Code(s): N17.9 - Acute kidney failure, unspecified Status: Acute Assessment and Plan: Creatinine admission was 2.4 and is now 1.4 (baseline) -likely due to left pyelonephritis as well as an atrophic right kidney which does not provide much reserve -monitor closely. Potassium within normal limits -Ucx + for UTI (7) Atrophic kidney: Code(s): N26.1 - Atrophy of kidney (terminal) Status: Acute Assessment and Plan: Finding on CT -monitor renal fx (8) Cardiomegaly: Code(s): I51.7 - Cardiomegaly Status: Acute Assessment and Plan: Patient does not look fluid overloaded nor does she have any evidence of vascular congestion -Pt follows with a monogram machine operator. Continue with routine f/u (9) Uterine fibroid: Code(s): D25.9 - Leiomyoma of uterus, unspecified Status: Acute Assessment and Plan: f/u with MINE SUPERVISOR outpt DS: Summary Hospital Course Hospital Course: Patient is a 60-year-old female who presented emergency room for nausea, vomiting and flank pain found to have pyelonephritis. She had called her primary care physician's office and said she had brown vomit in which they told her to come to the emergency room for evaluation of a possible GI bleed. There was no evidence of a GI bleed. BMP showed an elevated creatinine of 2.4, BUN 41. Hemoglobin 10.6. UA suspicious for UTI. CT of the abdomen and pelvis:1. Asymmetric left perinephric stranding without evident left-sided urolithiasis or hydronephrosis which raises suspicion for pyelonephritis. 2. Sludge and/or gallstones within the otherwise normal gallbladder. No other findings to suggest acute cholecystitis. 3. Mild cardiomegaly. 4. Mild left para-aortic lymphadenopathy which could be reactive related to suspected left pyelonephritis. 5. 2 mm nonobstructing stone at the periphery of the severely atrophic right kidney. 6. Likely chronic degeneration uterine fibroids. Patient was admitted to the hospitalist service and started on ceftriaxone as well as IV fluids. Her creatinine slowly improved and was down to
== END 2020-09-16 16:05 | disposition home or self-care (01) | DRG 463 ==
LOC: ANHED 09-12 02:37 → ANH3MEDSUR 09-12 02:46
PROVIDERS: Emergency Medicine Emergency Medical Services; Physician Assistant; Admitting Provider Internal Medicine; Emergency Provider General Practice; PCP Registered Nurse; Visit Provider Family Medicine
DX: N12 Tubulo-interstitial nephritis, not specified as acute or chronic (principal); N17.9 Acute kidney failure, unspecified; D64.9 Anemia, unspecified; N18.9 Chronic kidney disease, unspecified; E11.9 Type 2 diabetes mellitus without complications; E78.5 Hyperlipidemia, unspecified; I12.9 Hypertensive chronic kidney disease with stage 1 through stage 4 chronic kidney disease, or unspecified chronic kidney disease; I51.7 Cardiomegaly; D25.9 Leiomyoma of uterus, unspecified
CPT/HCPCS: 36415; 74176; 76705; 80048; 80053; 80069; 81001; 82274; 82607; 82728; 82746; 82948; 83036; 83540; 83550; 83690; 83735; 84466; 85014; 85018; 85025; 85027; 87077; 87086; 87088; 87186; 96361; 96365; 96374; 96375; 96376; 99285; A9270; C9113; G0378; G0379; J0696; J1815; J2405; J7030; J7120